=== PATIENT | male | born 1950 | race Caucasian/White ===

== ENCOUNTER 2016-08-30 07:15 | Day surgery (SDC) | payer MEDICAID ==
[~2016-08-30 07:15] MED LIST: Bupivacaine 0.5% 50 ML MDV ONE; Lidocaine 1% with EPINEPHrine 1:100,000 50 ML MDV ONE
[2016-08-30] MEDS ORDERED: fentaNYL 100 MCG/2 ML SDV ONE ×2 (07:22→09:29)
[2016-08-30] MEDS ORDERED: Midazolam 1 MG/ML 2 ML SDV ONE (07:22)
[2016-08-30] MEDS ORDERED: Propofol 200 MG/20 ML SDV ONE ×3 (07:22→09:15)
[2016-08-30] MEDS ORDERED: Dextrose 5%-Lactated Ringers 1,000 ML IV SCH (07:45)
[2016-08-30] MEDS ORDERED: ceFAZolin 2 GM in Premix Bag 1 BAG IV ONE (08:30)
[2016-08-30] MEDS ORDERED: Hydrochlorothiazide/Triamterene 25-37.5 MG Cap PO ONE (09:00)
[2016-08-30] MEDS ORDERED: Losartan 50 MG Tab PO ONE (09:00)
[2016-08-30] MEDS ORDERED: Ketorolac 60 MG/2 ML SDV ONE (09:09)
[2016-08-30 11:56] VITALS: BP 140/69
--- NOTE | 2016-08-31 12:51 | OR ---
DATE OF PROCEDURE: 08/30/2016 PREOPERATIVE DIAGNOSIS: Incarcerated right inguinal hernia. POSTOPERATIVE DIAGNOSES: 1. Incarcerated right inguinal hernia. 2. 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 OPERATIVE PROCEDURES: 1. Repair of incarcerated right inguinal hernia with mesh plug technique (70138). 2. Division of right ilioinguinal nerve (80106). ANESTHESIA: Local plus IV sedation. CONTROLS OPERATOR MOLDED GOODS: Sayra Hayden PA-C and MICHELE Bell student. INDICATION FOR PROCEDURE: This is a 66-year-old male presenting with increasingly symptomatic right inguinal hernia. This originally has been not entirely reducible. The plan is to proceed with an open repair of the inguinal hernia with mesh plug technique. Potential risks including bleeding, infection, injury to underlying viscera, problems with hernia recurring with the mesh becoming infected along with remote possibility of cardiopulmonary, septic, or hemorrhagic complications leading to were discussed, and the patient wishes to proceed. Additionally, the situation in which the ilioinguinal nerve, if this is in a position where it would be in contact with mesh in the postoperative period would likely be divided to minimize chances of postoperative neuropathic pain. This we will leave in the area of anesthesia, but avoid problems with chronic pain associated with the scar entrapment around the ilioinguinal nerve, the patient also wishes to proceed with that should that contingency present itself. DETAILS OF PROCEDURE: The patient was taken to the operating room. After IV sedation was administered, the abdomen and groin areas were prepped and draped. The right inguinal area was anesthetized with 1% lidocaine and a standard inguinal incision made and carried down through skin and subcutaneous tissue and external oblique aponeurosis. Aponeurosis then divided in line with the external ring and the subaponeurotic flaps raised superiorly and inferiorly. The ilioinguinal nerve was noted to track right along where the flat portion of the mesh plug system would likely be placed, given this it was divided and tracked out to the far lateral aspect of incision, where it was divided again and sent as surgical specimen. At this point, the cord structures were mobilized upward. The patient had a large indirect hernia. This was gradually dissected away from the cord structures and eventually reduced back into the peritoneal cavity. It appeared to likely have some incarcerated bladder fat within it, which was reduced along with the hernia. The floor medially was otherwise intact. Extra large mesh plug was then placed and affixed to Naseem's ligament then with titanium tacking screws on the underside of the conjoined tendon medially, superiorly, and laterally; and at that point, the plug appeared to be satisfactorily located. The flat portion of the mesh plug system was then sutured lateral to the cord structures with a 3-0 Vicryl stitch and tacked to the pubic tubercle with the tacking screws as well. The cord structures were then placed over this area and the external oblique aponeurosis approximated with 4-0 Vicryl stitch as was the Rahat's fascia and the skin closed with a 4-0 Vicryl subcuticular stitch. Steri-Strips were applied. The patient was taken to the recovery room in satisfactory condition. There were no apparent complications. Josue Vick MD /[id number]
== END 2016-08-30 11:55 | disposition home or self-care (01) ==
LOC: JP.SDS 07:15
PROVIDERS: ATTEND Surgery
DX: K40.30 Unilateral inguinal hernia, with obstruction, without gangrene, not specified as recurrent (principal); G57.81 Other specified mononeuropathies of right lower limb; I10 Essential (primary) hypertension
CPT/HCPCS: 49507; 64772; C1781; J0690; J1885; J2250; J2704; J3010; J7042; 88302

== ENCOUNTER 2023-10-30 07:33 | Day surgery (SDC) | payer MEDICARE ==
[~2023-10-30 07:33] MED LIST changes: -Bupivacaine 0.5% 50 ML MDV ONE; +Dexamethasone 4 MG/ML SDV ONE; +Glycopyrrolate 0.2 MG/ML 5 ML MDV ONE; -Lidocaine 1% with EPINEPHrine 1:100,000 50 ML MDV ONE; +Neostigmine Methylsulfate 10 MG/10 ML MDV ONE; +Ondansetron 4 MG/2 ML SDV ONE; +Propofol 200 MG/20 ML SDV ONE; +Rocuronium 50 MG/5 ML Vial ONE; +Succinylcholine 200 MG/10 ML MDV ONE; +fentaNYL 250 MCG/5 ML SDV ONE
[2023-10-30 08:05] LABS: HEMATOCRIT 44.1 % (38.4-49.7); HEMOGLOBIN 15.4 g/dL (12.9-16.9); MEAN CORPUSCULAR HEMOGLOBIN 28.7 pg (31.6-35.5); MEAN CORPUSCULAR HGB CONC 34.9 g/dL (31.6-35.5); MEAN CORPUSCULAR VOLUME 82.3 fL (81.4-99.0); RED BLOOD CELL COUNT 5.36 M/uL (4.14-5.76); WHITE BLOOD CELL COUNT,WBC 6.2 K/uL (3.2-11.0)
[2023-10-30] MEDS: Sodium Chloride 0.9% 1,000 ML IV SCH (08:12)
[2023-10-30 08:25] LABS: A/G RATIO 1.2 (1.2-2.2); ALANINE AMINOTRANSFERASE,ALT 23 U/L (12-78); ALBUMIN 4.1 g/dL (3.4-5.0); ALKALINE PHOSPHATASE 56 U/L (46-116); ASPARTATE AMNIOTRANSFERASE,AST 21 U/L (15-37); BILIRUBIN TOTAL 1.1 mg/dL (0.2-1.0); BLOOD UREA NITROGEN,BUN 17 mg/dL (7-18); CALCIUM 8.8 mg/dL (8.5-10.1); CARBON DIOXIDE,CO2 27 mmol/L (21-32); CHLORIDE,CL 102 mmol/L (100-108); CREATININE 1.1 mg/dL (0.8-1.3); ESTIMATED GFR 72 mL/min (>60); GLUCOSE RANDOM 106 mg/dL (74-106); POTASSIUM,K 3.6 mmol/L (3.6-5.2); PROTEIN TOTAL,TP 7.6 g/dL (6.4-8.2); SODIUM,NA 138 mmol/L (140-148)
[2023-10-30 08:26] LABS: ANION GAP 12.6 mmol/L (5.0-14.0)
[2023-10-30] MEDS: metroNIDAZOLE/Normal Saline 500 MG in Premix Bag 1 BAG IV ONE (08:48)
[2023-10-30] MEDS: ceFAZolin 2 GM in Premix Bag 1 BAG IV ONE (09:30)
[2023-10-30] MEDS: Ropivacaine 46 ML, dexAMETHasone 8 MG, EPINEPHrine 0.4 MG, Sodium Chloride 0.9% 31.6 ML NERVRT SCH (09:35)
[2023-10-30] MEDS: Bupivacaine 0.5%/EPINEPHrine 1:200,000 50 ML MDV ONE (09:40)
[2023-10-30] MEDS ORDERED: Lactated Ringers 1,000 ML ONE (10:23)
[2023-10-30] MEDS ORDERED: fentaNYL 100 MCG/2 ML SDV ONE (11:00)
[2023-10-30] MEDS: Acetaminophen/HYDROcodone 325-5 MG Tab PO PRN (12:16)
[2023-10-30 14:38] VITALS: BP 129/73; PULSE 78
== END 2023-10-30 15:20 | disposition home or self-care (01) ==
LOC: JP.SDS 07:33
PROVIDERS: ATTEND Surgery
DX: K40.31 Unilateral inguinal hernia, with obstruction, without gangrene, recurrent (principal); I10 Essential (primary) hypertension; D17.6 Benign lipomatous neoplasm of spermatic cord; Z87.891 Personal history of nicotine dependence
CPT/HCPCS: 36415; 49651; 80053; 85027; A9270; C1781; J0171; J0330; J0690; J1100; J1596; J1836; J2405; J2704; J2710; J2795; J3010; J3490; J7030; J7120; 00840-QZ